=== PATIENT | male | born 1965 | race Two or more races ===

== ENCOUNTER 2021-09-13 08:45 | Emergency (ER) | payer MEDICARE, OTHER ==
[~2021-09-13] VITALS: Ht 185.4 cm; Wt 113.4 kg
[2021-09-13 08:51] VITALS: BP 135/66
--- NOTE | 2021-09-13 08:57 | NUR ---
APPLIED ICE PACK TO AFFECTED AREA (R HAND)
[2021-09-13] MEDS ORDERED: SULF1TAB48 PO (08:59)
[2021-09-13] MEDS ORDERED: DIPH25TA25 PO (08:59)
[2021-09-13] MEDS ORDERED: SULFAMETH/TRIMETH 800/160 MG 1 UDTAB TABLET PO ONE (09:00)
[2021-09-13] MEDS ORDERED: diphenhydrAMINE HCL 50 MG/ML VIAL IM ONE (09:00)
--- NOTE | 2021-09-13 09:00 | NUR ---
provided w gloria and anamaria
[2021-09-13] MEDS ORDERED: diphenhydrAMINE HCL 50 MG/ML VIAL ONE (09:06)
[2021-09-13] MEDS ORDERED: SULFAMETH/TRIMETH 800/160 MG 1 UDTAB TABLET ONE (09:07)
--- NOTE | 2021-09-13 09:19 | NUR ---
requests for social worker school
--- NOTE | 2021-09-13 09:45 | NUR ---
SUPER[employer]OR TYPE [employer]K QUALITY CONTROL AT BEDSIDE
--- NOTE | 2021-09-13 10:01 | NUR ---
PATIENT PROVIDED W RESOURCES BY REPAIRER [employer].
--- NOTE | 2021-09-13 10:02 | NUR ---
CALLED SECURITY TO ASSIST PATIENT TO BE DISCHARGED
--- NOTE | 2021-09-13 10:03 | NUR ---
PATIENT AGGRESSIVE AND VERBALLY ABUSIVE TO STAFF.
--- NOTE | 2021-09-13 10:12 | NUR ---
Juan munguia in [facility] - 09/13/21 at 1015 by LILLIAN CALLED SECURITY TO ASSIST PATIENT TO BE DISCHARGED
--- NOTE | 2021-09-13 10:12 | NUR ---
CALLING [employer] TO ESCORT PT DUE TO PT BEING AGRESSIVE AND COMBATIVE TO STAFF AND OTHER PT. PT HAS BEEN DISCHARGED BY DR. WONG.
--- NOTE | 2021-09-13 10:16 | NUR ---
SW provided pt. with homeless resources/shelters. Pt. was aggressive and verbally abusive to staff.
--- NOTE | 2021-09-13 10:18 | NUR ---
[employer] AT BEDSIDE
--- NOTE | 2021-09-13 10:40 | NUR ---
[facility] ESCORTED PATIENT OUTSIDE FACILITY.
== END 2021-09-13 10:41 | disposition home or self-care (01) ==
LOC: ER 08:47
DX: L03.113 Cellulitis of right upper limb (principal); Z86.59 Personal history of other mental and behavioral disorders
CPT/HCPCS: 96372; 99283; J1200

== ENCOUNTER 2022-04-05 19:27 | Emergency (ER) | payer MEDICARE, OTHER ==
[~2022-04-05] VITALS: Ht 182.9 cm; Wt 95.3 kg
[~2022-04-05 19:27] MED LIST: DIPH25TA25 PO; SULF1TAB48 PO
[2022-04-05 19:30] VITALS: BP 116/68
--- NOTE | 2022-04-05 19:30 | NUR ---
BIBS FOR C/O FEELING DIZZY X2 WHEN GETTING UP FROM BED TODAY MORNING. DENIES HAVING DIZZINESS AT THIS TIME. PT AMBULATORY WITH STEADY GAIT. TOLERATING R/A WELL WITH NO SOB
[2022-04-05] MEDS ORDERED: MECLIZINE HCL 25 MG TABLET PO ONE (20:00)
[2022-04-05] MEDS ORDERED: MECL-159 PO (20:04)
[2022-04-05] MEDS ORDERED: MECLIZINE HCL 25 MG TABLET ONE (20:13)
--- NOTE | 2022-04-05 20:55 | NUR ---
Patient discharged to home in stable condition. RX Written and verbal after care instructions given. Patient verbalizes understanding of instruction. PT ambulatory with a steady gait
== END 2022-04-05 21:13 | disposition home or self-care (01) ==
LOC: ER 19:29
DX: R42 Dizziness and giddiness (principal); F32.A Depression, unspecified; F41.9 Anxiety disorder, unspecified; Z79.899 Other long term (current) drug therapy
CPT/HCPCS: 99282; J8597